=== PATIENT | female | born 1970 | race Caucasian/White ===

== ENCOUNTER 2020-06-30 08:44 | Day surgery (SDC) | payer BC ==
[2020-06-30] MEDS ORDERED: Depo-Medrol 40 MG/ML IM ONE (08:45)
[2020-06-30] MEDS ORDERED: Sodium Chloride 0.9(Preservative Free) 10 ML IJ ONE (08:45)
[2020-06-30] MEDS ORDERED: DIPRIVAN 200 MG/20 ML IV ONE (10:47)
[2020-06-30] MEDS ORDERED: Ketamine HCl 50 MG/ML ONE (10:48)
--- NOTE | 2020-06-30 12:10 | XRAY ---
Indication: Left L4-S1 transforaminal LUDY Intraoperative fluoroscopy was provided for 34 seconds. 4 digital spot images submitted for interpretation demonstrates posterior needle tips projecting over the expected left L4 and L5 nerve roots. Small amount of contrast injected for needle tip placement. Correlate with intraoperative findings/report.
--- NOTE | 2020-06-30 12:13 | XRAY ---
34 seconds fluoroscopy time in surgery for left L4-S1 for transforaminal LUDY.
[2020-06-30] MEDS ORDERED: Lactated Ringers 1,000 ML IV ONE (14:39)
== END 2020-06-30 11:22 | disposition home or self-care (01) ==
LOC: SDC-PAIN 08:44
PROVIDERS: ATTEND Psychiatry & Neurology Pain Medicine
DX: M54.16 Radiculopathy, lumbar region (principal); E11.9 Type 2 diabetes mellitus without complications; I10 Essential (primary) hypertension; E78.5 Hyperlipidemia, unspecified; R01.1 Cardiac murmur, unspecified; F41.8 Other specified anxiety disorders; Z79.899 Other long term (current) drug therapy
CPT/HCPCS: 64483; 64484; 72100; 77003; 82947; 84703; J1030; J2704; Q9966